=== PATIENT | female | born 1945 | race American Indian/Alaskan Native ===

== ENCOUNTER 2016-10-06 14:34 | Outpatient (CLI) | payer MEDICARE, OTHER | END 2016-10-06 14:35 | disposition home or self-care (01) | LOC: LABHHL 14:34 | PROVIDERS: ATTEND Surgery | DX: R92.0 Mammographic microcalcification found on diagnostic imaging of breast (principal) | CPT/HCPCS: 88305; 88361 ==

== ENCOUNTER 2016-11-01 07:14 | Day surgery (SDC) | payer MEDICARE, OTHER ==
--- NOTE | 2016-10-31 13:45 | Admit Criteria Form ---
Admission Criteria Documentation: AMBULATORY SURGERY EXCEPTION CRITERIA Ambulatory Surgery Exception Criteria ( Place 'X' for any and all applicable criteria): Surgery or procedure performed on ambulatory basis may require inpatient stay for[A] ANY ONE of the following(1)(2)(3)(4)(5)(6)(7)(8)(9): [X] I. A preoperative situation, condition, or finding that warrants inpatient stay as indicated by ANY ONE of the following: [X] a) Inpatient care needed because of severity of a disease or condition rather than the surgery (eg, severe cardiac or respiratory disease, severe infection) (15) (16 ) (17) (18) [] b) Emergent procedure (eg, angioplasty for acute ischemia)(19) [] c) Complex surgical approach or situation as indicated by ANY ONE of the following(3): [] i) Open approach needed instead of usual endoscopic, transcatheter, or other less invasive procedure [] ii) Difficult approach because of previous operation [] iii) Airway monitoring required after open neck procedures(20)(21) [] iv) Large mass requiring unusually extensive dissection [] v) Additional complicating feature requiring inpatient care (eg, drain management)(22(23): [] d) Major surgery in a pt with high anesthetic risk as indicated by ANY ONE of the following (2)(3)(5)(7)(8): [] i) ASA risk class III or higher (severe systemic disease impairing function) [D] [] ii) Advanced age (eg, older than 85 years)(14)(24) [] iii) Symptomatic heart failure(25) [] iv) Symptomatic asthma or COPD(8)(21) [] v) Morbid obesity with hemodynamic or respiratory problems(20)( 21)(26)(27) [] vi) Obstructive sleep apnea(20)(21) [] vii) Former premature infants who are younger than 60 weeks [] viii) High risk for severe postoperative abnormalities (eg, severe postoperative hypocalcemia after parathyroidectomy for severe hyperparathyroidism)(27)( 28) [] ix) Unstable angina(25) [] e) Drug-related risk requiring inpatient stay as indicated by ANY ONE of the following(5)(10)(14)(32)(33) [] i) Procedure requires discontinuing drugs or other therapy (eg , antiarrhythmic medication, antiseizure medication), which necessitates inpatient observation or treatment.(18)(31) [] ii) Major surgery and high risk drug use as indicated by ANY ONE of the following: [] 1) Active abuse of cocaine or similar drug [] 2) Monoamine oxidase inhibitor use [] 3) Other drug identified as posing risk [] f) Inadequate outpatient care situation as indicated by ANY ONE of the following(5)(10)(14)(32)(33) [] i) Patient lives remote from medical facility and procedure has urgent complication potential, and temporary nearby residence cannot be arranged [] ii) Patient will have postprocedure incapacitation and inadequate assistance at home, or alternative level of care cannot be arranged. [] iii) Patient will have long general anesthesia or procedure side effect resolution time, and competent person to stay with patient on first postoperative night at home or alternative level of care cannot be arranged. []iv) Other inadequate outpatient situation that cannot be handled by other means [] II. A perioperative event, condition, or finding that warrants inpatient stay as indicated by ANY ONE of the following (1)(2)(3): [] a) Inadequate physiologic recovery: cardiovascular, respiratory, or hemodynamic status not normal or near preoperative baseline(18) [] b) Hemodynamic instability [] c) Patient not alert with near normal or baseline mental status [] d) Temperature not normal or as expected and not appropriate for outpatient treatment of condition [] e) Ambulatory or appropriate activity level status not yet achieved post procedure [E](34)(35)(36) [] f) Operative site not appropriate (eg, unexpected or excessive drainage or bleeding) [] g) Postoperative effects not resolved or adequately managed (eg, significant pain or vomiting not appropriate for outpatient or next level of care)(10)(12) [] h) Complicating features requiring inpatient care as indicated by ANY ONE of the following(37): [] i) Severe complications of procedure (eg, bowel injury, airway compromise, vascular injury,severe hemorrhage) [] ii) Extensive (eg, dissection far beyond usual scope of procedure ) or prolonged (eg, 120 minutes beyond usual) surgery needed requiring inpatient postoperative care [] iii) Conversion to an open or complex procedure that requires inpatient care (eg, open vs laparoscopic cholecystectomy, abdominal vs vaginal hysterectomy)(38) [] iv) Comorbid condition or test result identified during or post procedure that requires inpatient care (7) [] v) Malignant hyperthermia(30) [] vi) Other complicating feature requiring inpatient care(22)(23) Inpatient stay may be needed until ALL of the following are present (1)(2)(3)(4) (5)(6)(10)(14)(33)(40): []a) Physiologic recovery: cardiovascular, respiratory, and hemodynamic status normal or near preoperative baseline []b) Hemodynamic stability []c) Patient alert, with near normal or baseline mental status []d) Temperature appropriate: patient afebrile or temperature appropriate for outpt treatment of condition []e) Activity level appropriate: ambulatory or appropriate activity level post procedure []f) Operative site appropriate as indicated by ALL of the following: []i) Site dry or with expected drainage []ii) Any blood noted is as expected for procedure. []g) Postoperative effects resolved or managed as indicated by ALL of the following: []i) Pain management appropriate for outpatient (or next level of) care(10) []ii) Minimal nausea and vomiting: if present, successfully treated with oral medication(12) []iii) Headache, dizziness, or drowsiness (if present) are mild. []h) Voiding status acceptable as indicated by ANY ONE of the following: []i) Voiding spontaneously []ii) No voiding but instructions given for follow-up in 6 to 8 hours []iii) Urinary catheter in place, and instructions given for follow-up []i) Complicating features requiring inpatient care manageable at a lower level of care(37) []j) Comorbid conditions manageable at a lower level of care(37) The original [employer] content created by [employer] has been revised. The portions of the content which have been revised are identified through the use of italic text or in bold, and [employer] has neither reviewed nor approved the modified material. All other unmodified content is copyright [employer]. Please see references footnoted in the original [employer] edition 2016
--- NOTE | 2016-11-01 08:06 | Anesthesia Consultation ---
Anesthesia Consult and Med Hx Date of service: 11/01/16 - Airway Anesthetic Teeth Evaluation: Caps ROM Head & Neck: Adequate Mental/Hyoid Distance: Adequate Mallampati Class: Class I Intubation Access Assessment: Good - Pulmonary Exam CTA: Yes - Cardiac Exam Cardiac Exam: RRR - Pre-Operative Health Status ASA Pre-Surgery Classification: ASA3 Proposed Anesthetic Plan: General - Pulmonary Hx Asthma: Yes (inhaler prescribed daily, last use 10/30) Hx Sleep Apnea: Yes (cpap machine ) - Other Systems Hx Cancer: Yes (LEFT BREAST, DX: 09/2016)
--- NOTE | 2016-11-01 08:07 | Anesthesia Day of Surgery ---
Anesthesia Day of Surgery - Day of Surgery Patient Examined: Yes Patient H&P Reviewed: Yes Patient is NPO: Yes
[2016-11-01] MEDS ORDERED: XYLOCAINE 1% 20 mL ONE ×2 (08:16→10:35)
[2016-11-01] MEDS ORDERED: DIPRIVAN 10 MG/ML IV ONE (08:24)
[2016-11-01] MEDS ORDERED: DILAUDID ONE (08:24)
[2016-11-01] MEDS: LACTATED RINGERS 1,000 ML IV SCH ×2 (08:53→13:00)
[2016-11-01] MEDS ORDERED: PEPCID PO NR (09:00)
[2016-11-01] MEDS ORDERED: VERSED IV NR (09:00)
[2016-11-01] MEDS ORDERED: ANCEF/STERILE WATER 2 GM/20 ML 2 GM/20 ML SYRINGE IV NR (09:00)
[2016-11-01] MEDS ORDERED: ZOFRAN IV PRN ×3 (09:14→12:53)
[2016-11-01] MEDS ORDERED: DILAUDID IV PRN (09:14)
[2016-11-01] MEDS ORDERED: NORCO 5/325 PO PRN ×3 (09:14→12:51)
--- NOTE | 2016-11-01 09:28 | Mammography Report ---
Left breast needle localization procedure. History: Left breast cancer. Procedure: Patient's skin surface was prepped using sterile technique. Local anesthetic was injected into the skin. Using mammographic guidance, a 7.5 cm Bucio needle was advanced into the area of interest at the site of the biopsy clip. Satisfactory localization was accomplished and a hookwire was left in place. The patient tolerated the procedure well and was sent to the OR in satisfactory condition.
--- NOTE | 2016-11-01 09:59 | Short Stay Summary ---
Short Stay Documentation Date of service: 11/01/16 - History H&P: obtained from office - Allergies and Medications Current Medications: Allergies No Known Allergies Allergy (Unverified 10/27/16 09:15) Home Medications Medication Instructions Recorded Confirmed Last Taken Type Fluticasone/Vilanterol [Breo 1 each IH QDAY 10/27/16 11/01/16 10/31/16 14:00 History Ellipta 200-25 Mcg INH] Pravastatin Sodium [Pravastatin] 40 mg PO QHS 10/27/16 11/01/16 10/30/16 22:00 History HYDROcodone/APAP 5-325 [Bicknell 1 each PO Q6HR PRN #30 tablet 11/01/16 Unknown Rx 5/325] Active Medications Acetaminophen/Hydrocodone Bitart (Bicknell 5/325) 2 each PO ONCE PRN PRN Reason: Pain, Moderate (4-6) Stop: 11/01/16 09:15 Famotidine (Pepcid) 20 mg PO PREOP NR Stop: 11/01/16 15:00 Last Admin: 11/01/16 08:54 Dose: 20 mg Hydromorphone HCl (Dilaudid) 0.5 mg IV Q10MIN PRN PRN Reason: Pain , Severe (7-10) Stop: 11/04/16 09:15 Lactated Ringer's (Lactated Ringers) 1,000 mls @ 42 mls/hr IV DIRECT SUSI Last Admin: 11/01/16 08:53 Dose: 42 mls/hr Midazolam HCl (Versed) 2 mg IV PREOP NR Stop: 11/01/16 23:59 Last Admin: 11/01/16 08:59 Dose: 2 mg Ondansetron HCl (Zofran) 4 mg IV ONCE PRN PRN Reason: Nausea And Vomiting Stop: 11/01/16 09:15 - Brief post op/procedure progress note Date of procedure: 11/01/16 Pre-op diagnosis: Left central breast cancer Post-op diagnosis: same Procedure: Left needle localizaton partial mastectomy Anesthesia: GETA Findings: Wire and clip present within radiograph specimen Surgeon: BRIE IRAHETA Estimated blood loss: minimal Pathology: list (left partial mastectomy) Specimen disposition: to lab Condition: stable - Disposition Condition at discharge: Good Disposition: DC- TO HOME OR SELFCARE Short Stay Discharge Plan Activity: other (no heavy lifting) Diet: regular Wound: other (keep incision clean and dry and may shower in 24 hours; no baths, pools or lakes; do not rub or scrub incision) Follow up with: PRIMARY CAREMD [Primary Care Provider] - 7 Days BRIE IRAHETA MD [Staff Physician] - 7 Days Prescriptions: HYDROcodone/APAP 5-325 [Bicknell 5/325] 1 each PO Q6HR PRN #30 tablet PRN Reason: Pain
[2016-11-01] MEDS ORDERED: XYLOCAINE MPF 2% ONE (10:09)
[2016-11-01] MEDS ORDERED: ZOFRAN ONE (10:09)
[2016-11-01] MEDS ORDERED: DECADRON ONE (10:09)
[2016-11-01] MEDS ORDERED: WATER FOR IRRIG STERILE IR ONE (10:27)
[2016-11-01] MEDS ORDERED: MARCAINE 0.25% INFILTRATI ONE ×2 (10:27→10:35)
[2016-11-01] MEDS ORDERED: XYLOCAINE 1% 20 mL INFILTRATI ONE (10:27)
--- NOTE | 2016-11-01 11:17 | Mammography Report ---
Surgical specimen radiograph. Findings: A single specimen is submitted. The radiograph confirms the presence of the biopsy clip and hookwire to be within the specimen.
--- NOTE | 2016-11-01 11:56 | Operative Report ---
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 Anesthesia: Gen. 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 Recommendations were to proceed with a left needle localization partial mastectomy. Patient wished to proceed with the above procedure. Procedure in detail: The patient was taken to radiology for wire placement to localize on the area of concern at clip placement. She was then taken to the operating room and was laid supine. Gen. anesthesia was administered without any complications. The left breast was prepped and draped in the normal sterile operative fashion. The wire was identified. A lateral periareolar incision was made with a 15 blade knife with dissection taken down to the subcutaneous tissues. First began raising of the lateral flap with the removal of the wire from the skin and taken down posteriorly followed by raising of the superior flap followed by raising of the medial flap and inferior flap with dissection taken down posteriorly. Specimen of concern was appropriately removed with the wire not encountered. Specimen was appropriately marked and sent to radiology and pathology. Radiograph specimen with clip and wire present. Additional anterior margin was taken as well which was posterior to the nipple with margins appropriately marked. Hemostasis was obtained with the Bovie cautery. The breast cavity was anesthetized with 1% lidocaine adn quarter percent Marcaine. Then began with mobilization of the breast tissues to ensure a good cosmetic closure. The subcutaneous tissues were approximated and closed using an interrupted 3-0 Vicryl and skin was brought together and closed using a running 4-0 Monocryl and skin affix. She tolerated surgery very well and was awakened from anesthesia without any complications and transported to PACU in good condition.
--- NOTE | 2016-11-01 12:36 | Post Anesthesia Evaluation ---
- Post Anesthesia Evaluation Patient Participated: Yes Airway Patent: Yes Stable Respiratory Function: Yes Nausea/Vomiting: No Temp > 96.8F: Yes Pain Manageable: Yes Adequeate Hydration: Yes Anesthesia Complications: No Block Receding Appropriately: Not Applicable Patient on Ventilator: No
[2016-11-01] MEDS ORDERED: NORCO 5/325 ONE ×2 (12:56→12:57)
[2016-11-01] MEDS ORDERED: NEO SYNEPHRINE/NS Syringe(OR USE) IV ONE (13:00)
[2016-11-01] MEDS ORDERED: REGLAN IV ONE (14:00)
[2016-11-01 14:18] VITALS: BP 115/68
== END 2016-11-01 14:40 | disposition home or self-care (01) ==
LOC: OR 07:14
PROVIDERS: ATTEND Surgery
DX: C50.112 Malignant neoplasm of central portion of left female breast (principal); J45.909 Unspecified asthma, uncomplicated; G47.33 Obstructive sleep apnea (adult) (pediatric); Z79.51 Long term (current) use of inhaled steroids
CPT/HCPCS: 19281; 19301; 76098; 88307; J0690; J1100; J1170; J2250; J2370; J2405; J2704; J2765; J7120

== ENCOUNTER 2017-05-30 08:43 | Outpatient (CLI) | payer MEDICARE, OTHER ==
--- NOTE | 2017-05-30 09:22 | XRay Report ---
Left foot 3 views. History: Left foot pain. Findings: There are no fractures or other acute findings. There is mild narrowing of the first metatarsophalangeal joint with mild hallux valgus. There are no other significant findings.
== END 2017-05-30 08:44 | disposition home or self-care (01) ==
LOC: SPVIMAG 08:43
PROVIDERS: ATTEND Orthopaedic Surgery
DX: M20.12 Hallux valgus (acquired), left foot (principal); J45.909 Unspecified asthma, uncomplicated

== ENCOUNTER 2020-11-18 09:39 | Outpatient (CLI) | payer MEDICARE, OTHER ==
--- NOTE | 2020-11-18 10:41 | Mammography Report ---
DIGITAL SCREENING MAMMOGRAM WITH CAD, 11/18/2020 CLINICAL INFORMATION / INDICATION: Routine screening mammography. SCREENING MAMMO TECHNIQUE: Digital bilateral 2D mammography was obtained in the craniocaudal and mediolateral obliqu e projections. This examination was interpreted with the benefit of Computer-Aided Detection analysis . COMPARISON: 11/18/2019, 09/05/2018 FINDINGS: Breast Density: There are scattered areas of fibroglandular density. No dominant mass, suspicious calcifications, or architectural distortion in the right breast. Postlumpectomy changes are noted on the left. IMPRESSION: No mammographic evidence of malignancy. Follow up recommendation: Routine yearly BI-RADS Category 2: Benign. A "normal" or negative report should not discourage follow up or biopsy of a clinically significant f inding. A written summary of these findings will be mailed to the patient. The patient will be entered into a mammography reporting system which will generate a reminder letter for the patient's next appointmen t at the appropriate interval. The [employer] recommends yearly mammograms starting at age 40 and continuing as l freida as a woman is in good health. Breast MRI is recommended for women with an approximate 20-25% or greater lifetime risk of breast cancer, including women with a strong family history of breast or ova aicha cancer or who have been treated for Hodgkin's disease. Signer Name: Saqib Elizalde MD Signed: 11/18/2020 10:36 AM Workstation Name: [email or web address]
== END 2020-11-18 09:40 | disposition home or self-care (01) ==
LOC: SPVWC 09:39
PROVIDERS: ATTEND Surgery
DX: Z12.31 Encounter for screening mammogram for malignant neoplasm of breast (principal)
CPT/HCPCS: 77067